=== PATIENT | female | born 1985 | race Caucasian/White ===

== ENCOUNTER 2017-07-12 23:29 | Emergency (ER) | payer OTHER ==
[2017-07-12 23:35] VITALS: BP 114/67; PULSE 63; RESP 16; TEMP 97.1; O2SAT 98
[2017-07-13] MEDS ORDERED: Albuterol 0.083% Inhal Sol (2.5 mg/3 mL) UD INH STA (00:08)
--- NOTE | 2017-07-13 00:10 | ED PDOC ---
HPI: General Adult Time Seen by Provider: 07/12/17 23:48 Chief Complaint (Nursing): Cough, Cold, Congestion History Per: Patient Additional Complaint(s): Pt. states for the past 6 days she's had a non-productive cough which became worse over the past 2 days. Reports cough is associated with nasal congestion and sore throat. She has been taking Dayquil/Nyquil without relief. Also reports developing chest pain present only with coughing. Denies hemoptysis, fever, SOB, recent travel, palpitations. Past Medical History Reviewed: Historical Data, Nursing Documentation, Vital Signs Vital Signs: Last Vital Signs Temp 97.1 F L 07/12/17 23:32 Pulse 63 07/12/17 23:32 Resp 16 07/12/17 23:32 BP 114/67 07/12/17 23:32 Pulse Ox 98 07/12/17 23:32 - Family History Family History: States: No Known Family Hx Denies: MS, CAD - Home Medications Home Medications: Ambulatory Orders Medication Instructions Recorded Fluticasone Propionate [Flonase] 1 actuation NS QAM #1 vial 12/24/14 Olopatadine Hydrochloride [Patanol 1 drop OP BID #5 ml 12/24/14 5 ml] Cephalexin [Keflex] 500 mg PO QID #28 cap 05/07/15 Gentamicin 0.1% 0.1 / TP BID #1 tube 03/05/16 Albuterol HFA [Ventolin HFA 90 2 puff IH [id number] PRN #90 puff 07/13/17 mcg/actuation (8 g)] Promethazine DM [Phenergan DM 5 - 10 ml PO Q8 PRN #120 ml 07/13/17 Syrup] - Allergies Allergies/Adverse Reactions: Allergies Allergy/AdvReac Type Severity Reaction Status Date / Time No Known Allergies Allergy Verified 07/12/17 23:32 Review of Systems ROS Statement: Except As Marked, All Systems Reviewed And Found Negative ENT: Positive for: Throat Pain Respiratory: Positive for: Cough Physical Exam - Physical Exam Appears: Positive for: Well, Non-toxic, No Acute Distress Skin: Positive for: Normal Color, Warm. Negative for: Rash Eye Exam: Positive for: EOMI, Normal appearance, PERRL ENT: Positive for: Normal ENT Inspection. Negative for: Pharyngeal Erythema, Tonsillar Exudate, Tonsillar Swelling Neck: Positive for: Normal, Painless ROM Cardiovascular/Chest: Positive for: Regular Rate, Rhythm Respiratory: Positive for: CNT, Normal Breath Sounds Gastrointestinal/Abdominal: Positive for: Normal Exam, Soft. Negative for: Tenderness Back: Positive for: Normal Inspection Extremity: Positive for: Normal ROM Neurologic/Psych: Positive for: Alert, Oriented - ECG O2 Sat by Pulse Oximetry: 98 - Progress ED Course And Treament: Albuterol neb x 1 ordered. Disposition - Clinical Impression Clinical Impression: Upper respiratory infection - Patient ED Disposition Is Patient to be Admitted: No - Disposition Referrals: [facility] [Outside] Disposition: Routine/Home Disposition Time: 00:12 Condition: STABLE Prescriptions: Albuterol HFA [Ventolin HFA 90 mcg/actuation (8 g)] 2 puff IH [id number] PRN #90 puff PRN Reason: Cough Promethazine DM [Phenergan DM Syrup] 5 - 10 ml PO Q8 PRN #120 ml PRN Reason: Cough Instructions: Upper Respiratory Infection (ED) Forms: [employer] ([place]) Print Language: UPPER SORBIAN
[2017-07-13] MEDS ORDERED: Albuterol 0.083% Inhal Sol (2.5 mg/3 mL) UD ONE (00:15)
== END 2017-07-13 00:59 | disposition home or self-care (01) ==
LOC: H.ER 23:29
DX: J06.9 Acute upper respiratory infection, unspecified (principal)

== ENCOUNTER 2018-04-17 13:17 | Inpatient (IN) | payer MEDICAID ==
[2018-04-17 13:48] VITALS: BMI 29.8
[2018-04-17] MEDS ORDERED: Lactated Ringer's 1,000 ML IV ONE (13:48)
[2018-04-17] MEDS ORDERED: Lactated Ringer's 1,000 ML IV SCH (14:00)
[2018-04-17] MEDS ORDERED: OXYTOCIN/0.9 % NS 20 UNIT/1,000 ML BAG IV ONE (15:51)
[2018-04-17] MEDS ORDERED: Oxytocin 30 UNIT 30 UNITS/500 ML BAG IV ONE ×2 (15:51)
[2018-04-17] MEDS ORDERED: Bupivacaine HCl 0.5% PF (30 ml) Inj ONE (15:58)
[2018-04-17] MEDS ORDERED: Benzocaine/Menthol SPRAY TOP PRN (17:22)
[2018-04-17] MEDS ORDERED: Oxycodone/Acetaminophen 5/325 mg Tab PO PRN ×2 (17:22)
[2018-04-17 17:38] LABS: BASO % 0.3 % (0.0-2.0); HEMOGLOBIN 14.6 g/dL (12.0-16.0); LYMPH # 1.3 K/uL (1.0-4.3); LYMPH % 12.1 % (20.0-40.0); MEAN CELL VOLUME 89.8 fl (81.0-99.0); MEAN CORPUSCULAR HEMOGLOBIN 30.7 pg (27.0-31.0); MEAN CORPUSCULAR HGB CONC 34.1 g/dL (33.0-37.0); MEAN PLATELET VOLUME 10.3 fl (7.2-11.7); MONO # 0.2 K/uL (0.0-0.8); MONO % 1.7 % (0.0-10.0); NEUT # 9.1 K/uL (1.8-7.0); NEUT % 85.9 % (50.0-75.0); RBC 4.77 Mil/uL (3.80-5.20); RED CELL DISTRIBUTION WIDTH 13.8 % (11.5-14.5); WHITE BLOOD COUNT 10.6 K/uL (4.8-10.8)
[2018-04-18] MEDS ORDERED: Benzocaine/Menthol SPRAY TOP PRN (00:58)
[2018-04-18] MEDS ORDERED: Oxycodone/Acetaminophen 5/325 mg Tab PO PRN ×2 (00:58)
[2018-04-18 06:33] LABS: BASO % 0.2 % (0.0-2.0); EOS % 0.1 % (0.0-4.0); HEMOGLOBIN 12.2 g/dL (12.0-16.0); LYMPH # 2.3 K/uL (1.0-4.3); LYMPH % 21.6 % (20.0-40.0); MEAN CELL VOLUME 89.9 fl (81.0-99.0); MEAN CORPUSCULAR HEMOGLOBIN 30.9 pg (27.0-31.0); MEAN CORPUSCULAR HGB CONC 34.3 g/dL (33.0-37.0); MEAN PLATELET VOLUME 9.8 fl (7.2-11.7); MONO # 0.5 K/uL (0.0-0.8); MONO % 5.1 % (0.0-10.0); NEUT # 7.9 K/uL (1.8-7.0); RBC 3.96 Mil/uL (3.80-5.20); RED CELL DISTRIBUTION WIDTH 13.9 % (11.5-14.5); WHITE BLOOD COUNT 10.8 K/uL (4.8-10.8)
--- NOTE | 2018-04-18 08:07 | OBPN ---
Datetime: 04/17/2018 17:19 IP Procedures: Artificial ROM IP Progress Plan: Augmentation; Anticipate Vaginal Delivery IP Progress Note Comment: patient was seen and examined, c/o pressure and pain O: VS reviewed EXAM: 9cm dil A/P: variable chanages were seen on monitor, AROM, reexamination, c/w SNVD protocol Case discussed with Dr. Tejeda --- Samantha Kline, PGY-II OB Hospitalist on-call. Areed with AROM - thin mec noted... antiicapte MAHNDO Datetime: 04/17/2018 15:35 IP Progress Impression: Normal progression of labor IP Informed Consent Obtain: Vaginal Delivery Dilatation, Provider: 6-7 Effacement, Provider: 80 Station, Provider: -2 Datetime: 04/17/2018 14:15 FHR - Baseline A Provider: 140 Gestation - Est Wks by US: 39.0 Presentation-Admit: Vertex Vital Signs Provider: Reviewed; Within Normal Limits NICHD Accel Fetus A IP Provider: 15X15 FHR Category Provider Fetus A: Category I NICHD Variability Prov Fetus A: Moderate 6-25bpm NICHD Decel Fetus A IP Provider: None Datetime: 04/17/2018 13:45 Contraction Comments Provider: irregular
--- NOTE | 2018-04-18 08:07 | OBADHP ---
Datetime: 04/17/2018 15:35 Dilatation, Provider: 6-7 Effacement, Provider: 80 Station, Provider: -2 Datetime: 04/17/2018 14:15 Pelvic Type - PN: Adequate Extremities - PN: Normal Abdomen - PN: Normal Back - PN: Normal Breast - PN: Not Done Lungs - PN: Normal Heart - PN: Normal Thyroid - PN: Normal Neurologic - PN: Normal HEENT - PN: Normal General - PN: Normal Presentation-Admit: Vertex FHR - Baseline A Provider: 140 Comments, ACOG Physical Exam: U/S at bedside showed fetus in vertex position Gestation - Est Wks by US: 39.0 IP Hx Assessment: The History has been Reviewed and is Current Vital Signs Provider: Reviewed; Within Normal Limits IP Chief Complaint: Uterine contractions NICHD Variability Prov Fetus A: Moderate 6-25bpm NICHD Accel Fetus A IP Provider: 15X15 FHR Category Provider Fetus A: Category I NICHD Decel Fetus A IP Provider: None Genitourinary Exam: Normal DTRs - PN: Normal IP Adm Impression: Term, intrauterine ; Intact Membranes IP Admit Plan: Admit to unit; Initiate labor protocol Datetime: 04/17/2018 13:45 Admit Comment, IP Provider: 32 y/o female GA of 39.0 wk presents to EDOB with painful contra ctions. She denies VFL and vaginal bleeding. She denies headache, dizziness, N/V/D. Patient reports f etal movements. PNC: [facility] Dr. Samantha Kline PMH: None FMH:None SocialHx: Denies tobacco/Rec drug/ETOH use. Surgicalhx: none Allergies: NKDA MEDS: vitamins GEN: not in acute distress, uncomfortable RESP:CTA b/l CV: RRR, S1 S2 normal, no murmurs ABD: Gravid, Soft, suprapubic tenderness SVE: (Exam by Dr. Tejeda) 4 cm dilated LE: No edema or calf tenderness Neuro: AAOx3 Assessmen/Plan 32 y/o GA 39.6 wk intrauterine with painful contractions 4 cm dilated, irregular contractions Admit patient to L_D CBC/type and screen ordered 2L LR boluses 1L LR at 125mL/hr Can have epidural, kitchen hand consulted Case discussed w/ attending physician Cathy Miller PGY-I OB Hospitalist on-call. With PGY2, I saw and examied this patinet, Agree with note. Labor, pain managment, delivrey and disucssed with pt and her . MAHNDO Contraction Comments Provider: irregular
--- NOTE | 2018-04-18 08:11 | OBDS ---
DELIVERY PERSONNEL Delivery Doctor: Deshawn Tejeda DO Cafeteria Server: Jessica Landis RN, M. LamelaRNC Resident: Dr Grullon MATERNAL INFORMATION Delivery Anesthesia: Local Medications in Delivery: Pitocin Estimated Blood Loss (ml): 200 Placenta Cultured: No Maternal Complications: None Provider Comments: Over intact perineum, of live Male , Weight 3515gm, 9/9 . Right A nterior shoulder was delivered first in a controlled manner after head followed by posterior arm and body. Loose nuchal cord and Light meconium was noted with amniotic fluid. was bulb suctioned n asopharygeally and started crying spontaneously. Baby was placed on Mom for Skin to skin contact. Umb ilical cord was cut by the father of the baby as instructed. Placenta was delivered intact spontaneou sly after uterine massage and repair was done as above. EBL 200cc Patient and baby remained stable in the delivery room OB Attending: Dr. Tejeda --- Samantha Kline, PGY-II OB Hospitalist on-call. I was in attendance for and placenta delivery. I repaired perineal l aceration MAHNDO LABOR SUMMARY EDC: 04/25/2018 00:00 No. Babies in Womb: 1 Attempted: No Labor Anesthesia: None LABOR INFORMATION Reason for Induction: Not Applicable Onset of Labor: 04/17/2018 08:00 Complete Dilatation: 04/17/2018 16:57 Oxytocin: N/A Group B Beta Strep: Negative Antibiotics # of Doses: n/a Antibiotics Time of Last Dose: n/a Steroids Given: None Reason Steroids Not Administered: Not Applicable MEMBRANES Membranes Rupture Method: Artificial Rupture of Membranes: 04/17/2018 17:53 Length of Rupture (hrs): -0.85 Amniotic Fluid Color: Light Meconium Amniotic Fluid Amount: Moderate Amniotic Fluid Odor: Normal STAGES OF LABOR Stage 1 hrs: 8 Stage 1 min: 57 Stage 2 hrs: 0 Stage 2 min: 5 Stage 3 hrs: 0 Stage 3 min: 16 Total Time in Labor hrs: 9 Total Time in Labor min: 18 VAGINAL DELIVERY Episiotomy: None Laceration Extension: Second Degree Laceration Type: Perineal Laceration Repair: Yes Laceration Repair Note: Repair of second degree perineal laceration with 2-0 vicryl rapid and local anesthesisa was infiltrated Initial Vag Sponge Count: laps = 10 rings Final Vag Sponge Count: laps = 10 rings Initial Vag Sharps Count: 1 Final Vag Sharps Count: 1 Sponge Count Correct: Yes Sharps Count Correct: Yes Count Comment: lap pads 10 suture 1 syringe 1 BABY A INFORMATION Delivery Date/Time: 04/17/2018 17:02 Method of Delivery: Vaginal Born in Route : No : N/A Forceps: N/A Vacuum Extraction: N/A Shoulder Dystocia : No SHOULDER DYSTOCIA BABY A Infant Delivery Date/Time: 04/17/2018 17:02 PRESENTATION/POSITION BABY A Presentation: Cephalic Cephalic Presentation: Vertex Breech Presentation: N/A PLACENTA INFORMATION BABY A Placenta Delivery Time : 04/17/2018 17:18 Placenta Method of Delivery: Spontaneous Placenta Status: Delivered SCORES BABY A Heart Rate 1 min: >100 bpm Resp Effort 1 min: Good Cry Reflex Irritability 1 min: Cough or Sneeze or Pulls Away Muscle Tone 1 min: Active Motion Color 1 min: Body [place], Extremities Blue Resuscitation Effort 1 min: Tactile Stimulation SCORE 1 MIN: 9 Heart Rate 5 min: >100 bpm Resp Effort 5 min: Good Cry Reflex Irritability 5 min: Cough or Sneeze or Pulls Away Muscle Tone 5 min: Active Motion Color 5 min: Body [place], Extremities Blue Resuscitation Effort 5 min: N/A SCORE 5 MIN: 9 INFORMATION BABY A Gestational Age at Delivery: 38.6 Gestational Status: Term Infant Outcome : Liveborn Condition : Stable Infant Sex: Male IDENTIFICATION/MEDS BABY A ID Band Number: [id number] ID Band Location: Left Leg; Left Arm Vitamin K Given : Not Given Erythromycin Given: Not Given WEIGHT/LENGTH BABY A Birthweight (gms): 3515 Weight (lb): 7 Infant Weight (oz): 12 CORD INFORMATION BABY A No. Cord Vessels: 3 Nuchal Cord : Around Neck x1, Loose Nuchal Cord Other: n/a True Knot: n/a Cord pH Baby Arterial: n/a Cord pH Baby Venous: n/a Cord Blood Taken: Yes Banking/Donate Info: n/a Infant Suction: Mouth; Nose ASSESSMENT BABY A Infant Complications: None Physical Findings at Delivery: Within Normal Limits Respirations: Appears Normal Clinic Physician Director/ALS Called : No Infant Care By: Deshawn Landis RN, Deshawn Robledo RNC Transferred To: Remains with Mother
--- NOTE | 2018-04-18 08:12 | OBDS ---
DELIVERY PERSONNEL Delivery Doctor: Deshawn Tejeda DO Trail Maintenance Worker: Jessica Landis RN, M. LamelaRNC Resident: Dr Grullon MATERNAL INFORMATION Delivery Anesthesia: Local Medications in Delivery: Pitocin Estimated Blood Loss (ml): 200 Placenta Cultured: No Maternal Complications: None Provider Comments: Over intact perineum, of live Male , Weight 3515gm, 9/9 . Right A nterior shoulder was delivered first in a controlled manner after head followed by posterior arm and body. Loose nuchal cord and Light meconium was noted with amniotic fluid. was bulb suctioned n asopharygeally and started crying spontaneously. Baby was placed on Mom for Skin to skin contact. Umb ilical cord was cut by the father of the baby as instructed. Placenta was delivered intact spontaneou sly after uterine massage and repair was done as above. EBL 200cc Patient and baby remained stable in the delivery room OB Attending: Dr. Tejeda --- Samantha Kline, PGY-II OB Hospitalist on-call. I was in attendance for and placenta delivery. I repaired perineal l aceration MAHNDO LABOR SUMMARY EDC: 04/25/2018 00:00 No. Babies in Womb: 1 Attempted: No Labor Anesthesia: None LABOR INFORMATION Reason for Induction: Not Applicable Onset of Labor: 04/17/2018 08:00 Complete Dilatation: 04/17/2018 16:57 Oxytocin: N/A Group B Beta Strep: Negative Antibiotics # of Doses: n/a Antibiotics Time of Last Dose: n/a Steroids Given: None Reason Steroids Not Administered: Not Applicable MEMBRANES Membranes Rupture Method: Artificial Membranes Rupture Method: Artificial Rupture of Membranes: 04/17/2018 17:53 Rupture of Membranes: 04/17/2018 16:53 Length of Rupture (hrs): -0.85 Length of Rupture (hrs): 0.15 Amniotic Fluid Color: Light Meconium Amniotic Fluid Color: Light Meconium Amniotic Fluid Amount: Moderate Amniotic Fluid Amount: Moderate Amniotic Fluid Odor: Normal Amniotic Fluid Odor: Normal STAGES OF LABOR Stage 1 hrs: 8 Stage 1 min: 57 Stage 2 hrs: 0 Stage 2 min: 5 Stage 3 hrs: 0 Stage 3 min: 16 Total Time in Labor hrs: 9 Total Time in Labor min: 18 VAGINAL DELIVERY Episiotomy: None Laceration Extension: Second Degree Laceration Type: Perineal Laceration Repair: Yes Laceration Repair Note: Repair of second degree perineal laceration with 2-0 vicryl rapid and local anesthesisa was infiltrated Initial Vag Sponge Count: laps = 10 rings Final Vag Sponge Count: laps = 10 rings Initial Vag Sharps Count: 1 Final Vag Sharps Count: 1 Sponge Count Correct: Yes Sharps Count Correct: Yes Count Comment: lap pads 10 suture 1 syringe 1 BABY A INFORMATION Infant Delivery Date/Time: 04/17/2018 17:02 Method of Delivery: Vaginal Born in Route : No : N/A Forceps: N/A Vacuum Extraction: N/A Shoulder Dystocia : No SHOULDER DYSTOCIA BABY A Delivery Date/Time: 04/17/2018 17:02 PRESENTATION/POSITION BABY A Presentation: Cephalic Cephalic Presentation: Vertex Breech Presentation: N/A PLACENTA INFORMATION BABY A Placenta Delivery Time : 04/17/2018 17:18 Placenta Method of Delivery: Spontaneous Placenta Status: Delivered SCORES BABY A Heart Rate 1 min: >100 bpm Resp Effort 1 min: Good Cry Reflex Irritability 1 min: Cough or Sneeze or Pulls Away Muscle Tone 1 min: Active Motion Color 1 min: Body [place], Extremities Blue Resuscitation Effort 1 min: Tactile Stimulation SCORE 1 MIN: 9 Heart Rate 5 min: >100 bpm Resp Effort 5 min: Good Cry Reflex Irritability 5 min: Cough or Sneeze or Pulls Away Muscle Tone 5 min: Active Motion Color 5 min: Body [place], Extremities Blue Resuscitation Effort 5 min: N/A SCORE 5 MIN: 9 INFANT INFORMATION BABY A Gestational Age at Delivery: 38.6 Gestational Status: Term Outcome : Liveborn Condition : Stable Infant Sex: Male IDENTIFICATION/MEDS BABY A ID Band Number: [id number] ID Band Location: Left Leg; Left Arm Vitamin K Given : Not Given Erythromycin Given: Not Given WEIGHT/LENGTH BABY A Birthweight (gms): 3515 Weight (lb): 7 Infant Weight (oz): 12 CORD INFORMATION BABY A No. Cord Vessels: 3 Nuchal Cord : Around Neck x1, Loose Nuchal Cord Other: n/a True Knot: n/a Cord pH Baby Arterial: n/a Infant Cord pH Baby Venous: n/a Cord Blood Taken: Yes Banking/Donate Info: n/a Suction: Mouth; Nose ASSESSMENT BABY A Complications: None Physical Findings at Delivery: Within Normal Limits Infant Respirations: Appears Normal Race Relations Professor/ALS Called : No Care By: Deshawn Landis RN, Deshawn Robledo RNC Transferred To: Remains with Mother
--- NOTE | 2018-04-18 10:34 | OBPPN ---
Datetime: 04/18/2018 06:13 PP Pain Prov: Within normal limits PP Nausea Prov: Denies PP Flatus Prov: Yes PP BM Prov: No PP Breasts Prov: Not Done PP Heart Prov: Normal PP Lungs Prov: Normal PP Abdomen/Uterus Prov: Normal PP Lochia Prov: Normal PP Vulva/Perineum Prov: Not Done PP CVA Tenderness Prov: Normal PP Extremities Prov: Normal PP C/S Incision Prov: Not Applicable PP Progress Prov: Normal PP Impression Prov: Normal progression PP Plan Prov: Continue present management PP Progress Note Prov: 32 y/o, now , S/P at 39.0 wks on PPD1. Patient seen and examined at bedside in AM. No acute events overnight. Reports lower abdominal letitia n which is controlled with Motrin PRN. Toleraing diet well PO, Passing flatus but no BM yet. Lochia l ess than menses. Patient is breast and formula feeding. Denies any Mood changes, N/V/D, fever, chills , dysuria. VSS, Afebrile General: No acute distress HEENT: EOMI, Mucosa moist Chest: RRR, S1S2 present, No murmurs Lungs: CTZ B/L, No wheeze Abdomen: Appropirated lower abdominal tenderness, + BS Ext: No pedal edema or calf tenderness A/P: 32 y/o, now , S/P at 39.0 wks on PPD1 with normal progression. - Encourage ambulation - Encourage breast feeding - Motrin for pain - No circumcision for infant male - Continue with medical Mx - Anticipated D/C on 04/19/18 [facility]#[id number] Rolando Kline, PGY1 Patient seen and examined by me this am. Agree with above resident note. Ambulation and breast fee ding encouraged. Continue pain meds as needed. --Dr. Soni Vital Signs Provider PP: Reviewed; Within Normal Limits
--- NOTE | 2018-04-19 14:46 | OBPPN ---
Datetime: 04/19/2018 06:02 PP Pain Prov: Within normal limits PP Nausea Prov: Denies PP Flatus Prov: Yes PP BM Prov: Yes PP Breasts Prov: Not Done PP Heart Prov: Normal PP Lungs Prov: Normal PP Abdomen/Uterus Prov: Normal PP Lochia Prov: Normal PP Vulva/Perineum Prov: Not Done PP CVA Tenderness Prov: Normal PP Extremities Prov: Normal PP C/S Incision Prov: Not Applicable PP Progress Prov: Normal PP Impression Prov: Normal progression PP Plan Prov: Continue present management PP Progress Note Prov: 32 y/o, now , S/P at 39.0 wks on PPD2. Patient seen and examined at bedside. Pain well controlled with motrin. Toleraing diet well PO, Pa ssing flatus and had BM yesterday. Lochia less than menses. Patient is breast and formula feeding. De nies any Mood changes, N/V/D, fever, chills, dysuria. Ambulating and voiding well w/o difficulties. VSS, Afebrile General: No acute distress HEENT: EOMI, Mucosa moist Chest: RRR, S1S2 present, No murmurs Lungs: CTZ B/L Abdomen: NT, soft, Uterus firm below umbilicus, + BS Ext: No pedal edema or calf tenderness A/P: 32 y/o, now , S/P at 39.0 wks on PPD2 with normal progression. - Encourage ambulation - Encourage breast feeding - Motrin PRN for pain - Anticipated D/C today 04/19/18 case discussed with Attending [place]#[id number] Rolando Kline, PGY1 Attending addendum: I saw and examined the patient at bedside myself this morning. I reviewed the resident note above and agree with findings and management. IN home. Abeba Salas MD Vital Signs Provider PP: Reviewed; Within Normal Limits Datetime: 04/18/2018 16:55 IP PP Procedures: None
--- NOTE | 2018-04-19 14:49 | OBDCSUM ---
Datetime: 04/19/2018 03:53 Discharged to, Provider: Home Follow up at, Provider: [facility], Dr. Garza Disch Instr Activity: Normal activity Disch Instr Diet: Regular Discharge Instructions, Provider: Routine instructions given Discharge Diagnosis, Provider: Term Delivered Discharge Time: 04/19/2018 12:15 Follow up in weeks, Provider: 4/6 weeks Disch Referrals: None Contraception discussed, Prov: Yes Disch Activity Restrictions: No sexual activity; Nothing in vagina - [place], tampons, douche Discharge Comment, Provider: EGA: 39.0 wks Diagnosis: 32 y/o , s/p on 04/17/18 @ 16:25. Pt delivered baby boy, Wt: 2635gm, 9/9 Summary: Patient is PPD2 with normal progression. Pt had 2nd degree perineal laceration during del vega which was repaired. No complications during post- period. Lochia less than menses. Pt pas sing flatus, tolerating regular diet, Fundus firm below umbilicus, able to ambulate w/o any difficult ies, voiding well. Denies fever, chills, MÉNDEZ, SOB, N/V, calf pain. CBC post-: 12.2/35.6 Discharge Instructions: Continue with PNV 1 tab PO daily Ibuprofen 600mg 1 tab PO Q6h prn for mild-mod pain Pt planning to use implant (Nexplanon) for contraception. Instructions given to patient: If excessive bleeding, return of pain or increasing pain and/or fev er without relief from medication, go to ED PT was urged if feeling sad, mood swing, depression, neglect of baby, suicidal thoughts, homicidal thought should go to ED or call 911 for help Pt should go to her Primary care doctor if she has difficulty with F/U post- visit in 4 to 6 weeks with [facility] Case discussed with attending Rolando Kline, PGY1 Attending addendum: I saw and examined the patient at bedside myself this morning. I reviewed the resident note above and agree with findings and management. [place] home. Abeba Salas MD Contraception after Delivery: Control Pill/Patch
[2018-04-19 19:49] VITALS: BP 114/73; PULSE 52; RESP 16; TEMP 98.1; O2SAT 100
== END 2018-04-19 12:15 | disposition home or self-care (01) | DRG 373 ==
LOC: H.EROB2 13:17 → H.L&D 13:48 → H.OB/GYN 20:38
PROVIDERS: ADMIT Obstetrics & Gynecology; ATTEND Obstetrics & Gynecology
PROC: 10E0XZZ Delivery of Products of Conception, External Approach (ICD-10-PCS; principal; 2018-04-17)
PROC: 0KQM0ZZ Repair Perineum Muscle, Open Approach (ICD-10-PCS; 2018-04-17)
PROC: 10907ZC Drainage of Amniotic Fluid, Therapeutic from Products of Conception, Via Natural or Artificial Opening (ICD-10-PCS; 2018-04-17)
PROC: 4A1HXCZ Monitoring of Products of Conception, Cardiac Rate, External Approach (ICD-10-PCS; 2018-04-17)
DX: O77.0 Labor and delivery complicated by meconium in amniotic fluid (principal); O69.81X0 Labor and delivery complicated by cord around neck, without compression, not applicable or unspecified; O70.1 Second degree perineal laceration during delivery; Z3A.38 38 weeks gestation of pregnancy; Z37.0 Single live birth